=== PATIENT | male | born 2000 | race Caucasian/White ===

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

== ENCOUNTER 2018-05-19 21:29 | Emergency (ER) | payer OTHER ==
[2018-05-20] MEDS: AZITHROMYCIN 250 MG TAB PO (01:04)
[2018-05-20] MEDS: ACETAMINOPHEN 325 MG TAB PO (01:04)
[2018-05-20] MEDS: SOD CHLORIDE 0.9% 500 ML IV (01:05)
[2018-05-20] MEDS: CEFTRIAXONE 1 GM/50 ML (PMX) 50 ML IVPB (01:05)
[2018-05-20] MEDS: KETOROLAC 30 MG INJ IV (01:05)
[2018-05-20] MEDS: IPRATROPIUM (NEB) 0.5 MG/2.5 ML AMP INH (01:14)
[2018-05-20] MEDS: ALBUTEROL 0.083% (NEB) 2.5 MG/3 ML AMP HHN (01:14)
== END 2018-05-20 02:48 | disposition home or self-care (01) ==
LOC: FTE 21:29
DX: A49.9 Bacterial infection, unspecified (principal)
CPT/HCPCS: 94664; 96365; 96366; 96375; 99284-25

== ENCOUNTER 2018-07-15 20:25 | Emergency (ER) | payer OTHER ==
[2018-07-16] MEDS: LORAZEPAM 1 MG TAB PO (00:57)
== END 2018-07-16 01:42 | disposition home or self-care (01) ==
LOC: FTE 20:25
DX: F41.9 Anxiety disorder, unspecified (principal)
CPT/HCPCS: 93005; 99283-25